=== PATIENT | male | born 1980 | race Caucasian/White ===

== ENCOUNTER 2023-10-07 07:29 | Emergency (ER) | payer OTHER ==
[~2023-10-07] VITALS: Ht 180.3 cm; Wt 97.7 kg
[2023-10-07 07:35] VITALS: TEMP 98.1
[2023-10-07] MEDS: LIDOCAINE 1% 20 ML VIAL SQ ONE (08:29)
[2023-10-07 08:43] LABS: BASOPHILS % (AUTO) 0.2 % (0.0-2.0); EOSINOPHILS % (AUTO) 1.6 % (1.0-6.0); HEMATOCRIT 33.1 % (41-53); HEMOGLOBIN 11.1 g/dL (13.5-17.5); LYMPHOCYTES # (AUTO) 1.4 K/uL (1.0-4.8); LYMPHOCYTES % (AUTO) 12.8 % (22.0-44.0); MEAN CORPUSCULAR HEMOGLOBIN 28.3 pg (26.0-34.0); MEAN CORPUSCULAR HGB CONC 33.6 G/dL (31.0-37.0); MEAN CORPUSCULAR VOLUME 84 fL (80-100); MONOCYTES # (AUTO) 0.8 K/uL (0.1-1.0); MONOCYTES % (AUTO) 7.7 % (2.0-9.0); NEUTROPHILS # (AUTO) 8.6 K/uL (1.8-7.7); NEUTROPHILS % (AUTO) 77.7 % (40.0-70.0); PLATELET COUNT (AUTO) 393 K/uL (150-450); RED BLOOD CELL COUNT(AUTO) 3.92 MIL/uL (4.50-5.90); RED CELL DISTRIBUTION WIDTH 14.1 % (11.5-14.5); WHITE BLOOD COUNT (AUTO) 11.1 K/uL (4.5-11.0)
[2023-10-07 08:51] LABS: ANION GAP 9 mmol/L (8-16); CARBON DIOXIDE 27 mmol/L (22-29); CHLORIDE 101 mmol/L (98-107); CREATININE 0.93 mg/dL (0.60-1.30); GLUCOSE,RANDOM 138 mg/dL (70-110); SODIUM SERUM 137 mmol/L (136-145); UREA NITROGEN, BLOOD 15 mg/dL (7-18)
[2023-10-07 08:52] LABS: CALCIUM, TOTAL 8.9 mg/dL (8.8-10.5); GLOMERULAR FILTR. RATE CALC > 60 mL/min (>60)
[2023-10-07] MEDS: VANCOMYCIN HCL 1.5 GM in DEXTROSE 5%-WATER 250 ML IV ONE (09:23)
[2023-10-07] MEDS ORDERED: CEPH-558 PO (10:41)
[2023-10-07] MEDS ORDERED: IBUP-1492 PO (10:41)
[2023-10-07] MEDS ORDERED: SULF-261 PO (10:41)
[2023-10-07 11:35] VITALS: BP 130/74; PULSE 89; RESP 16
== END 2023-10-07 11:48 | disposition left against medical advice (07) ==
LOC: EMS 07:29
DX: L02.416 Cutaneous abscess of left lower limb (principal); L02.211 Cutaneous abscess of abdominal wall
CPT/HCPCS: 99284; 96365; 10060; 80048; 85025; 36415; J3490; J3370; J7060

== ENCOUNTER 2023-10-09 07:30 | Emergency (ER) | payer OTHER ==
[~2023-10-09] VITALS: Ht 180.3 cm; Wt 90.9 kg
[~2023-10-09 07:30] MED LIST: CEPH-558 PO; IBUP-1492 PO; SULF-261 PO
[2023-10-09 07:46] VITALS: BP 132/79; PULSE 91; RESP 18; TEMP 98.3
== END 2023-10-09 08:37 | disposition home or self-care (01) ==
LOC: EMS 07:30
DX: L02.416 Cutaneous abscess of left lower limb (principal); L02.211 Cutaneous abscess of abdominal wall; E11.9 Type 2 diabetes mellitus without complications
CPT/HCPCS: 99282; Z7502

== ENCOUNTER 2023-10-24 07:04 | Emergency (ER) | payer OTHER ==
[~2023-10-24] VITALS: Ht 180.3 cm; Wt 99.1 kg
[2023-10-24 07:07] VITALS: TEMP 97.9
[2023-10-24 07:22] VITALS: BP 136/78; PULSE 96; RESP 16
[2023-10-24] MEDS ORDERED: SULF-261 PO (07:31)
[2023-10-24] MEDS ORDERED: CEPH-558 PO (07:31)
== END 2023-10-24 07:46 | disposition home or self-care (01) ==
LOC: EMS 07:12
DX: L02.414 Cutaneous abscess of left upper limb (principal); F11.20 Opioid dependence, uncomplicated; E11.9 Type 2 diabetes mellitus without complications
CPT/HCPCS: 10060; 99283